=== PATIENT | male | born 1960 | race American Indian/Alaskan Native ===

== ENCOUNTER 2016-04-30 13:15 | Emergency (ER) | payer MEDICAID ==
[2016-04-30 13:15] VITALS: BMI 29.8
[2016-04-30 13:22] VITALS: TEMP 97.7; O2SAT 99
[2016-04-30] MEDS ORDERED: Iohexol 240 (50 ml) PO ONE (14:19)
[2016-04-30 15:05] LABS: BASO # 0.1 K/uL (0.0-0.2); BASO % 1.1 % (0.0-2.0); EOS # 0.1 K/uL (0.0-0.7); EOS % 2.2 % (0.0-4.0); HEMATOCRIT 46.5 % (35.0-51.0); LYMPH # 1.3 K/uL (1.0-4.3); LYMPH % 24.3 % (20.0-40.0); MEAN CELL VOLUME 89.8 fl (80.0-94.0); MEAN CORPUSCULAR HEMOGLOBIN 29.1 pg (27.0-31.0); MEAN CORPUSCULAR HGB CONC 32.4 g/dL (33.0-37.0); MEAN PLATELET VOLUME 9.2 fl (7.2-11.7); MONO # 0.5 K/uL (0.0-0.8); MONO % 10.2 % (0.0-10.0); NEUT # 3.3 K/uL (1.8-7.0); NEUT % 62.2 % (50.0-75.0); NRBC % 0.4 % (0.0-0.0); RED CELL DISTRIBUTION WIDTH 14.6 % (11.5-14.5); WHITE BLOOD COUNT 5.3 K/uL (4.8-10.8)
[2016-04-30 15:11] LABS: ALKALINE PHOSPHATASE 78 U/L (38-126); ALT/SGPT 37 U/L (21-72); AST/SGOT 37 U/L (17-59); BILIRUBIN,TOTAL 0.5 mg/dl (0.2-1.3); BLOOD UREA NITROGEN 14 mg/dl (9-20); CALCIUM 9.3 mg/dL (8.4-10.2); CARBON DIOXIDE 25 mmol/L (22-30); CHLORIDE 103 mmol/L (98-107); GFR AFRICAN-AMERICAN > 60; GLUCOSE,RANDOM 108 mg/dL (75-110); LIPASE 181 U/L (23-300); POTASSIUM 4.4 MMOL/L (3.6-5.0); SODIUM 138 mmol/l (132-148); TOTAL PROTEIN 8.3 G/DL (6.3-8.2)
--- NOTE | 2016-04-30 15:46 | CP.PCM.CON ---
History of Present Illness - History of Present Illness History of Present Illness: 55 y.o. male was send to ER by his Infectious disease physician for r/o appendicitis. Patient has a history of Hepatitis C and was send for the CT scan of the abdomen to evaluate the liver, on the CT scan patient was found to have an incidental finding of a prominent appendix. Patient denies having any abdominal pain lately, no nausea, no vomiting, passing flatus and having bowel movements, no diarrhea, no constipation, no fever or chills, no urinary symptoms. Review of Systems - Constitutional Constitutional: As Per HPI - EENT Eyes: Other (unremarkable) Ears: Other (unremarkable) Nose/Mouth/Throat: Other (unremarkable) - Cardiovascular Cardiovascular: Other (unremarkable) - Respiratory Respiratory: Cough - Gastrointestinal Gastrointestinal: As Per HPI - Genitourinary Genitourinary: As Per HPI - Reproductive: Male Reproductive:Male: Other (unremarkable) - Musculoskeletal Musculoskeletal: Other (unremarkable) - Integumentary Integumentary: Other (unremarkable) - Neurological Neurological: Other (unremarkable) - Psychiatric Psychiatric: Other (unremarkable) - Endocrine Endocrine: Other (unremarkable) - Hematologic/Lymphatic Hematologic: Other (History of HIV +) Past Patient History - Past Social History Smoking Status: Heavy Smoker > 10 Cigarettes Daily - CARDIAC Hx Hypertension: Yes - HEMATOLOGICAL/ONCOLOGICAL Hx Hepatitis C: Yes Hx Human Immunodeficiency Virus (HIV): Yes - PSYCHIATRIC Hx Substance Use: No - SURGICAL HISTORY Other/Comment: Back surgery - ANESTHESIA Hx Anesthesia: Yes Hx Anesthesia Reactions: No Meds Allergies/Adverse Reactions: Allergies Allergy/AdvReac Type Severity Reaction Status Date / Time No Known Allergies Allergy Verified 04/29/16 15:17 Physical Exam - Constitutional Appears: Well, Non-toxic, No Acute Distress - Head Exam Head Exam: ATRAUMATIC, NORMAL INSPECTION, NORMOCEPHALIC - Eye Exam Eye Exam: EOMI, Normal appearance, PERRL Pupil Exam: NORMAL ACCOMODATION, PERRL - ENT Exam ENT Exam: Mucous Membranes Moist, Normal Exam - Neck Exam Neck exam: Positive for: Full Rom, Normal Inspection - Respiratory Exam Respiratory Exam: Clear to Auscultation Bilateral, NORMAL BREATHING PATTERN - Cardiovascular Exam Cardiovascular Exam: REGULAR RHYTHM, +S1, +S2 - GI/Abdominal Exam GI & Abdominal Exam: Normal Bowel Sounds, Soft Additional comments: NT, ND, no rebound, no guarding, negative tenderness at McBurny's point, negative Rovsing sign - Rectal Exam Rectal Exam: Deferred - Extremities Exam Extremities exam: Positive for: full ROM, normal inspection - Neurological Exam Neurological exam: Alert, CN II-XII Intact, Oriented x3 - Psychiatric Exam Psychiatric exam: Normal Affect, Normal Mood - Skin Skin Exam: Dry, Intact, Normal Color, Warm Results - Vital Signs Recent Vital Signs: Last Vital Signs Temp 97.7 F 04/30/16 13:17 Pulse 98 H 04/30/16 13:17 Resp 18 04/30/16 13:17 BP 132/101 H 04/30/16 13:17 Pulse Ox 99 04/30/16 13:17 - Labs Result Diagrams: 04/30/16 14:53 04/30/16 14:53 Labs: Laboratory Results - last 24 hr 04/30/16 14:53 WBC 5.3 RBC 5.18 Hgb 15.0 Hct 46.5 MCV 89.8 MCH 29.1 MCHC 32.4 L RDW 14.6 H Plt Count 188 MPV 9.2 Neut % (Auto) 62.2 Lymph % (Auto) 24.3 Mitchell % (Auto) 10.2 H Eos % (Auto) 2.2 Baso % (Auto) 1.1 Neut # 3.3 Lymph # 1.3 Mitchell # 0.5 Eos # 0.1 Baso # 0.1 Sodium 138 Potassium 4.4 Chloride 103 Carbon Dioxide 25 Anion Gap 14 BUN 14 Creatinine 1.4 Est GFR ( Amer) > 60 Est GFR (Non-Af Amer) 52 Random Glucose 108 Lactic Acid 0.9 Calcium 9.3 Total Bilirubin 0.5 AST 37 ALT 37 Alkaline Phosphatase 78 Total Protein 8.3 H Albumin 4.1 Globulin 4.2 H Albumin/Globulin Ratio 1.0 Lipase 181 - Imaging and Cardiology CT scan - abdomen Status: Image reviewed by me, Report reviewed by me Assessment & Plan - Assessment and Plan (Free Text) Assessment: 55 y.o. male with r/o appendicitis Plan: - Taking into account that patient is completely asymptomatic and has normal laboratory values the possibility of appendicitis is unlikely - No general surgery intervention at present time - Patient is clear for discharge home from the surgical stand point - Patient was specifically instructed that if he develops any abdominal pain or discomfort, fever or chills, nausea or vomiting to come back to Emergency Department immediately - Patient was d/w Michael RONQUILLO and ER physician
--- NOTE | 2016-04-30 15:47 | ED PDOC ---
HPI: General Adult Time Seen by Provider: 04/30/16 13:34 Chief Complaint (Nursing): Abdominal Pain Chief Complaint (Provider): abdominal pain History Per: Patient History/Exam Limitations: no limitations Have you had recent travel within the past 21 days to any of the following countries: [place], [place], [place] or [place]?: No Recently: Treated By A Physician Additional Complaint(s): Jareth Obrien is a 55 year old female, with a previous medical history of HIV, Hepatitis C and Hepatitis B, who presents to the ED for evaluation as per PMD. Pt reports doing an abdominal CT scan as an outpatient for liver evaluation and was informed of abnormal findings which he should be evaluated for in the ED. Pt reports to only having a cough with no additional medical complaints. Pt reports no abdominal pain, nausea, vomiting, diarrhea, chest pain or shortness of breath. PMD: Niko Rodríguez MD Past Medical History Reviewed: Historical Data, Nursing Documentation, Vital Signs Vital Signs: Last Vital Signs Temp 97.7 F 04/30/16 13:17 Pulse 82 04/30/16 16:20 Resp 20 04/30/16 16:20 BP 139/95 H 04/30/16 16:20 Pulse Ox 99 04/30/16 16:36 - Medical History PMH: HIV, HTN, Hyperlipidemia - Surgical History Surgical History: Back Surgery - Family History Family History: States: Unknown Family Hx - Social History Current smoker - smoking cessation education provided: Yes Alcohol: Social Drugs: Denies - Home Medications Home Medications: Ambulatory Orders Medication Instructions Recorded Albuterol HFA [Ventolin HFA 90 2 puff IH Q4 PRN #1 unit 04/30/16 mcg/actuation (8 g)] Azithromycin [Zithromax] 250 mg PO DAILY #6 tab 04/30/16 - Allergies Allergies/Adverse Reactions: Allergies Allergy/AdvReac Type Severity Reaction Status Date / Time No Known Allergies Allergy Verified 04/29/16 15:17 Review of Systems ROS Statement: Except As Marked, All Systems Reviewed And Found Negative Cardiovascular: Negative for: Chest Pain Respiratory: Positive for: Cough. Negative for: Shortness of Breath Gastrointestinal: Negative for: Nausea, Vomiting, Abdominal Pain, Diarrhea Physical Exam - Reviewed Nursing Documentation Reviewed: Yes Vital Signs Reviewed: Yes - Physical Exam Appears: Positive for: Well, Non-toxic, No Acute Distress Head Exam: Positive for: ATRAUMATIC, NORMAL INSPECTION, NORMOCEPHALIC Skin: Positive for: Normal Color, Warm, DRY Eye Exam: Positive for: EOMI, Normal appearance, PERRL ENT: Positive for: Normal ENT Inspection Neck: Positive for: Normal, Painless ROM Cardiovascular/Chest: Positive for: Regular Rate, Rhythm Respiratory: Positive for: CNT, Normal Breath Sounds Gastrointestinal/Abdominal: Positive for: Normal Exam, Bowel Sounds, Soft. Negative for: Tenderness (to deep palpation ), Organomegaly, Mass, Distended, Guarding, Rebound Back: Positive for: Normal Inspection Extremity: Positive for: Normal ROM Neurologic/Psych: Positive for: Alert, Oriented - Laboratory Results Result Diagrams: 04/30/16 14:53 04/30/16 14:53 - ECG O2 Sat by Pulse Oximetry: 99 (RA) Pulse Ox Interpretation: Normal Medical Decision Making Medical Decision Making: Initial Impression: abnormal CT scan and cough Initial Plan: * CT abdomin IV & PO contrast * lipase * labs * urinalysis * lactic acid * reevaluation Labs reviewed with no acute finding, normal WBC count and LA. continues to have no abdominal pain and no abdominal tenderness. call placed to Dr. Rodríguez discussed Abnormal CT scan and the results were reviewed by handbook writer; CT done as outpatient; evidence of possible appendicitis. discussed case with Dr. Rodríguez- he indicates normal CD4 count and undetectable HIV levels. Dr. Rodríguez is unsure if findings are of any significance. If pt needs to be admitted recommended family practice. Spoke to Dr. Wells recommended surgical evaluation. Dr. Terrell contacted and saw pt at bedside. he reviewed the CT scan, the labs, evaluated the patient and initially felt pt should stay for overnight observation however he states the pt has no fever, no white count and a benign abdomen thus Dr. terrell recommends pt be discharged and follow up as an outpatient and given z-pack for cough. Scribe Attestation: Documented by Sultana Batista, acting as a scribe for Michael Laughlin PA-C. Provider Scribe Attestation: All medical record entries made by the Scribe were at my direction and personally dictated by me. I have reviewed the chart and agree that the record accurately reflects my personal performance of the history, physical exam, medical decision making, and the department course for this patient. I have also personally directed, reviewed, and agree with the discharge instructions and disposition. return information discussed including fever, abdominal pain, urinary complaints or any new concerns. he expressed understanding. all questions answered. Disposition - Clinical Impression Clinical Impression: Abnormal CT of the abdomen - Patient ED Disposition Is Patient to be Admitted: No Counseled Patient/Family Regarding: Studies Performed, Diagnosis, Need For Followup - Disposition Referrals: Niko Rodríguez MD [Family Provider] - Disposition Time: 16:20 Condition: GOOD Additional Instructions: return for abdominal pain, fevers, inability to eat, nausea, diarrhea follow up without fail with Dr. Rodríguez for re-evaluation. Prescriptions: Albuterol HFA [Ventolin HFA 90 mcg/actuation (8 g)] 2 puff IH Q4 PRN #1 unit PRN Reason: Wheezing Azithromycin [Zithromax] 250 mg PO DAILY #6 tab Instructions: Abdominal Pain (ED) Print Language: PERSIAN
[2016-04-30 16:10] LABS: RBC URINE 2 /hpf (0-3); URINE BILIRUBIN NEGATIVE (NEGATIVE); URINE BLOOD NEGATIVE (NEGATIVE); URINE COLOR YELLOW (YELLOW); URINE GLUCOSE (UA) NEG (Normal); URINE KETONE NEGATIVE (NEGATIVE); URINE LEUKOCYTE ESTERASE NEG Leu/uL (Negative); URINE PROTEIN 100 mg/dL (NEGATIVE); WBC URINE < 1 /hpf (0-5)
[2016-04-30 16:42] VITALS: BP 139/95; PULSE 82; RESP 20
== END 2016-04-30 16:20 | disposition home or self-care (01) ==
LOC: H.ER 13:15
DX: R93.5 Abnormal findings on diagnostic imaging of other abdominal regions, including retroperitoneum (principal); I10 Essential (primary) hypertension; E78.5 Hyperlipidemia, unspecified